=== PATIENT | male | born 1985 | race Caucasian/White ===

== ENCOUNTER 2018-11-24 10:51 | Emergency (ER) | payer OTHER, MEDICAID ==
[~2018-11-24] VITALS: Ht 175.3 cm; Wt 77.1 kg
[2018-11-24] MEDS ORDERED: ABILIFY10 MG PO (11:11)
[2018-11-24] MEDS ORDERED: PAXIL10 MG PO (11:11)
[2018-11-24] MEDS ORDERED: CLEOCIN HCL150 MG PO (11:38)
[2018-11-24 11:44] VITALS: BP 132/78
== END 2018-11-24 11:46 | disposition home or self-care (01) ==
LOC: M.ERS 10:51
DX: L08.89 Other specified local infections of the skin and subcutaneous tissue (principal); L53.9 Erythematous condition, unspecified; F41.0 Panic disorder [episodic paroxysmal anxiety]; Z88.8 Allergy status to other drugs, medicaments and biological substances